=== PATIENT | male | born 1970 | race Caucasian/White ===

== ENCOUNTER 2020-10-01 14:27 | Outpatient (REF) | payer OTHER, SELFPAY ==
--- NOTE | ~2020-10-01 | MR_ITS ---
EXAMINATION: MR KNEE WITHOUT CONTRAST, LEFT CLINICAL INFORMATION: Left knee. Medial pain x2 months. Twisting injury. COMPARISON: None TECHNIQUE: MRI of the knee without contrast was performed using routine sequences on a high-field scanner. FINDINGS: MENISCI: Medial Meniscus: Complex tear of the posterior horn and body is primarily horizontal, contacting the meniscal undersurface. There is peripheral extrusion of an undersurface meniscal flap into the meniscotibial recess. Significant undersurface fraying is present at the tear. A multilocular parameniscal cyst extends from the meniscal body around the anterior horn, measuring 4.7 x 0.7 x 1.2 cm. A more posterior multilocular parameniscal cyst propagates posteriorly along the posterior joint capsule, measuring 4.7 x 0.9 x 1 cm. Lateral Meniscus: Intact LIGAMENTS: Cruciate: Intact Collateral: Components of the parameniscal cyst propagate through the MCL. MCL and LCL complex are intact. EXTENSOR MECHANISM: Intact ARTICULAR CARTILAGE/BONE: Patellofemoral Compartment: Lateral trochlear inclination angle measures 6 degrees, shallow. There is severe, full-thickness articular cartilage loss at two-thirds of the lateral patellar facet and much of the lateral trochlear facet with articular cortical remodeling, subcortical sclerosis and edema, and marginal osteophytes. There is more moderate surrounding chondral thinning at the lateral facets and mild to moderate chondral thinning at the medial facets. A transverse full-thickness chondral fissure extends into the medial patellar facet. TT TG distance measures 1.1 cm. No fractures. Medial Compartment: Subchondral edema and cystic change at the medial tibial plateau are reactive to the overlying meniscal tear. Minimal chondral thinning in this region. Small marginal osteophytes. Lateral Compartment: Small marginal osteophytes. Minimal chondral fissuring at the anterior weightbearing surface of the lateral femoral condyle. JOINT FLUID AND BURSAE: No joint effusion or Eden's cyst. MR/MR knee LT wo con IMPRESSION: 1. Complex horizontal undersurface tear at the posterior horn and body of the medial meniscus with partial extrusion of the meniscal body and prominent parameniscal cyst. 2. 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 3. Mild medial and lateral compartment osteoarthritis.
== END 2020-10-01 14:28 | disposition home or self-care (01) ==
LOC: HO.MRI 14:27
PROVIDERS: Visit Provider Orthopaedic Surgery
DX: S83.242A Other tear of medial meniscus, current injury, left knee, initial encounter (principal)
CPT/HCPCS: 73721

== ENCOUNTER 2020-12-20 13:03 | Outpatient (REF) | payer OTHER, SELFPAY ==
[2020-12-20 14:03] LABS: Basophils Percent Auto 0.7 % (0-2); Eosinophils Absolute Auto 0.1 X10*3/uL (0.0-0.4); Eosinophils Percent Auto 2.4 % (0-4); Hematocrit 41.1 % (42-52); Hemoglobin 13.6 g/dl (14.0-18.0); Imm Gran Abs Auto 0.02 X10*3/uL (0.00-0.03); Imm Gran Pct Auto 0.5 % (0.0-0.4); Lymphocytes Absolute Auto 0.7 X10*3/uL (1.2-4.9); Lymphocytes Percent Auto 16.4 % (20-40); MANUAL DIFF FLAG SCAN; Mean Corpuscular HGB Conc 33.1 g/dl (31.0-36.0); Mean Corpuscular Hemoglobin 30.4 pg (27.0-33.0); Mean Corpuscular Volume 91.7 fL (80-98); Mean Platelet Volume 9.8 fL (9.4-12.4); Monocytes Absolute Auto 0.3 X10*3/uL (0.1-1.2); Monocytes Percent Auto 7.8 % (2-11); Neutrophils Percent Auto 72.2 % (45-73); Platelet Count 210 X10*3/uL (160-400); Red Blood Count 4.48 X10*6/uL (4.60-5.80); Red Cell Distribution Width 12.3 % (11.0-16.0); SCAN SMEAR FLAG 1; White Blood Count 4.1 X10*3/uL (4.8-10.8)
[2020-12-20 14:23] LABS: SLIDE REVIEW VERIFIED
[2020-12-20 14:27] LABS: Anion Gap 13 (12-20); Blood Urea Nitrogen 18 mg/dL (9-16); Calcium 9.7 mg/dL (8.4-10.2); Carbon Dioxide 27 mmol/L (22-29); Chloride 104 mmol/L (96-108); Estimated Glomerular Filt Rate > 60; Glucose Fasting 84 mg/dL (60-99); Potassium 4.3 mmol/L (3.3-5.1); Sodium 140 mmol/L (135-145)
[2020-12-20 14:51] LABS: TSH reflex Free T4 5.91 uIU/mL (0.32-4.0)
[2020-12-20 15:24] LABS: Free T4 (Free Thyroxine) 0.79 ng/dL (0.71-1.85)
== END 2020-12-20 13:04 | disposition home or self-care (01) ==
LOC: HO.10HDL 13:03
PROVIDERS: Visit Provider Physician Assistant
DX: Z85.819 Personal history of malignant neoplasm of unspecified site of lip, oral cavity, and pharynx (principal)
CPT/HCPCS: 36415; 80048; 84439; 84443; 85025

== ENCOUNTER 2021-02-18 12:05 | Outpatient (REF) | payer OTHER, SELFPAY | END 2021-02-18 12:06 | disposition home or self-care (01) | LOC: HO.LAB 12:05 | PROVIDERS: Visit Provider Physician Assistant | DX: E30.9 Disorder of puberty, unspecified (principal) | CPT/HCPCS: 36415; 84443 ==

== ENCOUNTER 2021-03-19 14:32 | Outpatient (REF) | payer OTHER, SELFPAY ==
--- NOTE | ~2021-03-19 | XR_ITS ---
EXAMINATION: XR ANKLE, RIGHT CLINICAL INFORMATION: Right ankle pain. COMPARISON: None TECHNIQUE: AP, lateral, and mortise views of the right ankle. FINDINGS: There is no evidence of acute fracture or dislocation of the right ankle. There is evidence for previous trauma with some spurring about the medial and lateral malleoli. There is some narrowing of the medial joint space compartment with subchondral cyst formation present. There is some talar tilt present of approximately 7 degrees. XR/XR ankle RT min 3V IMPRESSION: Degenerative change medial joint space compartment of the right ankle with 7 degrees of talar tilt.
== END 2021-03-19 14:33 | disposition home or self-care (01) ==
LOC: HO.HOSX 14:32
PROVIDERS: Visit Provider Physician Assistant
DX: M25.571 Pain in right ankle and joints of right foot (principal)
CPT/HCPCS: 73610

== ENCOUNTER 2021-03-27 14:23 | Outpatient (REF) | payer OTHER, SELFPAY ==
--- NOTE | ~2021-03-27 | MR_ITS ---
EXAMINATION: MR ANKLE WITHOUT CONTRAST, RIGHT CLINICAL INFORMATION: Synovitis and tenosynovitis of the right ankle. Right ankle pain. COMPARISON: Radiographs dated 03/19/2021. TECHNIQUE: Multiplanar MR imaging was obtained through the right ankle on a 1.5 Manda magnet. FINDINGS: ACHILLES TENDON: Normal. OTHER TENDONS: A longitudinal tear of the peroneus brevis measures 7 cm in length and is associated with tendinosis and moderate tenosynovitis. Peroneus longus is normal. There is cvqd-rp-zuzikkjh posterior tibial tenosynovitis. Flexor hallucis longus and flexor digitorum longus are intact. LIGAMENTS: Anterior talofibular ligament is largely absent, consistent with a chronic high-grade tear. Calcaneofibular and posterior talofibular ligaments are intact. Distal tibiofibular ligaments are intact. There is poor definition of the deep fibers of the deltoid ligament, most consistent with a prior sprain. The spring ligament and superficial fibers of the deltoid ligament are intact. BONE AND ARTICULAR CARTILAGE: There is nonuniform articular cartilage loss at the talus with a broad area of high-grade cartilage loss posteromedially measuring 1.8 x 1 cm in area, associated with articular cortical irregularity and subchondral edema as well as a small non-marginal osteophyte. Additional focal high-grade cartilage loss is present at the lateral margin of the talar dome over an area measuring 2 x 0.6 cm with full-thickness chondral fissuring, articular cortical irregularity, subchondral edema, and a non-marginal osteophyte. There is high-grade cartilage loss along the medial articular surface of the talar dome at the articulation with the medial malleolus with significant associated articular cortical remodeling and subchondral edema as well as marginal osteophytes. Foci of full-thickness chondral fissuring are present at the tibial plafond anteriorly with underlying subchondral edema and small to moderate-sized marginal osteophytes. More mild degenerative arthritis is present in the lateral aspect of the talocrural joint. There is mild osteoarthritis in the posterior facet of the subtalar joint. The Chopart joint appears relatively well preserved. No fracture or malalignment. Mild osteoarthritis is present in the tarsometatarsal joints. JOINT FLUID AND SOFT TISSUES: No significant joint effusion. Marked subcutaneous edema is present in the posterior soft tissues of the ankle. There is additional subcutaneous emphysema anterolaterally. There is pshw-kf-getacnav synovitis at the talocrural joint. PLANTAR FASCIA: Normal. SINUS TARSI AND TARSAL TUNNEL: Normal. MR/MR ankle RT wo con IMPRESSION: 1. Moderate talocrural osteoarthritis with areas of high-grade cartilage loss, most pronounced medially. Prominent anterior marginal osteophytes may produce anterior ankle joint impingement, though are not specific for it in the absence of a corresponding symptoms. 2. Ijqd-zb-wmieabbw synovitis at the talocrural joint. The pattern of osteoarthritis in the talocrural joint suggests that this is reactive in nature. A superimposed inflammatory arthropathy cannot be excluded. 3. Longitudinal tear of the peroneus brevis with tendinosis and moderate tenosynovitis. 4. Ylte-gl-xltgvoea posterior tibial tenosynovitis.
== END 2021-03-27 14:24 | disposition home or self-care (01) ==
LOC: HO.MRI 14:23
PROVIDERS: Visit Provider Orthopaedic Surgery
DX: M65.9 Synovitis and tenosynovitis, unspecified (principal)
CPT/HCPCS: 73721

== ENCOUNTER 2021-06-19 10:17 | Outpatient (REF) | payer OTHER, SELFPAY ==
[2021-06-19 10:42] LABS: MANUAL DIFF FLAG NO
[2021-06-19 11:07] LABS: Basophils Percent Auto 0.6 % (0-2); Eosinophils Absolute Auto 0.2 X10*3/uL (0.0-0.4); Eosinophils Percent Auto 4.6 % (0-4); Hematocrit 42.9 % (42-52); Hemoglobin 14.8 g/dl (14.0-18.0); Imm Gran Abs Auto 0.02 X10*3/uL (0.00-0.03); Imm Gran Pct Auto 0.4 % (0.0-0.4); Lymphocytes Absolute Auto 0.8 X10*3/uL (1.2-4.9); Mean Corpuscular HGB Conc 34.5 g/dl (31.0-36.0); Mean Corpuscular Volume 89.7 fL (80-98); Mean Platelet Volume 9.4 fL (9.4-12.4); Monocytes Absolute Auto 0.4 X10*3/uL (0.1-1.2); Monocytes Percent Auto 8.1 % (2-11); Neutrophils Absolute Auto 3.5 X10*3/uL (2.0-8.3); Neutrophils Percent Auto 70.3 % (45-73); Platelet Count 219 X10*3/uL (160-400); Red Blood Count 4.78 X10*6/uL (4.60-5.80); Red Cell Distribution Width 11.6 % (11.0-16.0)
[2021-06-19 11:54] LABS: Alanine Aminotransferase 21 U/L (0-40); Albumin Level 4.4 g/dL (3.5-5.0); Alkaline Phosphatase 49 U/L (39-117); Anion Gap 10 (12-20); Aspartate Amino Transferase 33 U/L (5-37); Bilirubin Total 1.3 mg/dL (0.0-1.0); Blood Urea Nitrogen 16 mg/dL (9-16); Calcium 9.1 mg/dL (8.4-10.2); Carbon Dioxide 26 mmol/L (22-29); Chloride 104 mmol/L (96-108); Cholesterol 246 mg/dL; Estimated Glomerular Filt Rate > 60; Glucose Random 79 mg/dL (60-115); HDL Cholesterol 55 mg/dL; LDL Cholesterol Calculated 177 mg/dl; Potassium 4.4 mmol/L (3.3-5.1); Sodium 136 mmol/L (135-145); Triglycerides 74 mg/dL
[2021-06-19 11:58] LABS: Prostate Specific Antigen 0.39 ng/mL (<0.05-4.0); TSH reflex Free T4 2.93 uIU/mL (0.32-4.0)
== END 2021-06-19 10:18 | disposition home or self-care (01) ==
LOC: HO.LAB 10:17
PROVIDERS: Visit Provider Physician Assistant
DX: Z12.5 Encounter for screening for malignant neoplasm of prostate (principal); Z85.819 Personal history of malignant neoplasm of unspecified site of lip, oral cavity, and pharynx
CPT/HCPCS: 36415; 80053; 80061; 84153; 84443; 85025

== ENCOUNTER 2021-08-30 14:00 | Outpatient (RCR) | payer OTHER, SELFPAY ==
--- NOTE | 2021-03-29 12:03 | MHC.PT.EP ---
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 Upon exam he demonstrates impairments of decreased ROM, joint mobility of subtalar joint, restriction of lower extremity soft tissues, decreased stability of foot and ankle complex and increased pain. Functional limitations include decreased tolerance to long periods of static standing, decrease tolerance to high demand recreational tasks and fitness activities. Frequency and Duration: The patient will be seen 1-2 x week for 3 weeks Short Term Goals: educ in ankle strength and stabilization program and demonstrate evidence of learning in 2 visits Intermediate Goals: To demonstrate SLS right x 30 seconds with max preturbations in 4 weeks To demonstrate return to sport with pain no greater than 2/10 during activity in 3 weeks To tolerate standing for 4 hours or greater without increasing pain greater than 2/10 in 3 weeks Treatment Plan: Modalities to reduce pain, spasms and effusion. Manual therapy to restore motion and function. Therapeutic exercise to improve strength and flexibility. Neuromuscular re-education for posture and balance. Therapeutic activities to return to functional activities of daily living. Electronically signed by: LISA CANTU PT, DPT Please sign and return to therapist. Thank you for your referral.
--- NOTE | 2021-07-10 15:12 | MHC.PT.EP ---
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 Upon exam he demonstrates impairments of decreased ROM, joint mobility of subtalar joint, restriction of lower extremity soft tissues, decreased stability of foot and ankle complex and increased pain. Functional limitations include decreased tolerance to long periods of static standing, decrease tolerance to high demand recreational tasks and fitness activities. Frequency and Duration: The patient will be seen 1-2 x week for 3 weeks Short Term Goals: STG MET Tail Sawyer Goals: To demonstrate SLS right x 30 seconds with max preturbations in 4 weeks To demonstrate return to sport with pain no greater than 2/10 during activity in 3 weeks To tolerate standing for 4 hours or greater without increasing pain greater than 2/10 in 3 weeks Treatment Plan: Modalities to reduce pain, spasms and effusion. Manual therapy to restore motion and function. Therapeutic exercise to improve strength and flexibility. Neuromuscular re-education for posture and balance. Therapeutic activities to return to functional activities of daily living. Electronically signed by: Please sign and return to therapist. Thank you for your referral.
== END 2021-11-11 10:51 | disposition home or self-care (01) ==
LOC: HO.PT 14:00
PROVIDERS: Visit Provider Physician Assistant
DX: M19.071 Primary osteoarthritis, right ankle and foot (principal)
CPT/HCPCS: 97014; 97033; 97035; 97110; 97112; 97140; 97161; 97530

== ENCOUNTER 2021-12-04 11:19 | Outpatient (REF) | payer OTHER, SELFPAY ==
[2021-12-04 12:50] LABS: Thyroid Stimulating Hormone 5.13 uIU/mL (0.32-4.0)
== END 2021-12-04 11:20 | disposition home or self-care (01) ==
LOC: HO.LAB 11:19
PROVIDERS: Visit Provider Physician Assistant
DX: E03.9 Hypothyroidism, unspecified (principal)
CPT/HCPCS: 36415; 84443

== ENCOUNTER 2022-01-30 12:07 | Outpatient (REF) | payer OTHER, SELFPAY ==
[2022-01-30 14:12] LABS: TSH reflex Free T4 1.41 uIU/mL (0.32-4.0)
== END 2022-01-30 12:08 | disposition home or self-care (01) ==
LOC: HO.LAB 12:07
PROVIDERS: Visit Provider Physician Assistant
DX: Z85.819 Personal history of malignant neoplasm of unspecified site of lip, oral cavity, and pharynx (principal)
CPT/HCPCS: 36415; 84443

== ENCOUNTER 2022-05-12 08:32 | Outpatient (REF) | payer OTHER, SELFPAY ==
[2022-05-12 11:04] LABS: Alanine Aminotransferase 33 U/L (0-40); Albumin Level 4.4 g/dL (3.5-5.0); Alkaline Phosphatase 55 U/L (39-117); Anion Gap 14 (12-20); Aspartate Amino Transferase 41 U/L (5-37); Bilirubin Direct 0.3 mg/dL (0.0-0.5); Blood Urea Nitrogen 26 mg/dL (9-16); Calcium 9.2 mg/dL (8.4-10.2); Carbon Dioxide 25 mmol/L (22-29); Chloride 105 mmol/L (96-108); Estimated Glomerular Filt Rate > 60; Glucose Fasting 95 mg/dL (60-99); HDL Cholesterol 62 mg/dL; Potassium 4.5 mmol/L (3.3-5.1); Sodium 139 mmol/L (135-145)
[2022-05-12 11:27] LABS: Insulin 7 uU/mL (2-29); TSH reflex Free T4 2.29 uIU/mL (0.32-4.0)
[2022-05-12 13:03] LABS: Cholesterol 271 mg/dL; Triglycerides 46 mg/dL
[2022-05-13 22:32] LABS: LDL Cholesterol Direct 150 mg/dL (<100)
[2022-05-14 14:56] LABS: CRP High Sensitivity <0.3 mg/L
[2022-05-17 03:57] LABS: Dihydrotestosterone 78 ng/dL (12-65)
[2022-05-17 14:51] LABS: Testosterone, Free 58.4 pg/mL (35.0-155.0); Testosterone, Total 739 ng/dL (250-1100)
[2022-05-17 16:22] LABS: Triiodothyronine T3 Reverse 14 ng/dL (8-25)
[2022-05-17 20:42] LABS: Cortisol, Free 0.33 mcg/dL
== END 2022-05-12 08:33 | disposition home or self-care (01) ==
LOC: HO.10HDL 08:32
PROVIDERS: Visit Provider Physician Assistant
DX: E03.9 Hypothyroidism, unspecified (principal)
CPT/HCPCS: 36415; 80048; 80076; 82465; 82530; 82642; 83525; 83718; 83721; 84402; 84403; 84443; 84478; 84482; 86141

== ENCOUNTER 2022-07-30 09:35 | Outpatient (REF) | payer OTHER, SELFPAY ==
[2022-07-30 09:44] LABS: MANUAL DIFF FLAG NO
[2022-07-30 10:02] LABS: Basophils Percent Auto 1.1 % (0-2); Eosinophils Absolute Auto 0.1 X10*3/uL (0.0-0.4); Hemoglobin 14.1 g/dl (14.0-18.0); Lymphocytes Absolute Auto 0.7 X10*3/uL (1.2-4.9); Lymphocytes Percent Auto 19.5 % (20-40); Mean Corpuscular HGB Conc 33.6 g/dl (31.0-36.0); Mean Corpuscular Hemoglobin 30.3 pg (27.0-33.0); Mean Corpuscular Volume 90.1 fL (80.0-98.0); Mean Platelet Volume 10.2 fL (9.4-12.4); Monocytes Absolute Auto 0.3 X10*3/uL (0.1-1.2); Monocytes Percent Auto 8.8 % (2-11); Neutrophils Absolute Auto 2.4 x10*3/uL (2.0-8.3); Neutrophils Percent Auto 66.6 % (45-73); Platelet Count 190 X10*3/uL (160-400); Red Blood Count 4.66 X10*6/uL (4.60-5.80); Red Cell Distribution Width 12.4 % (11.0-16.0); White Blood Count 3.5 X10*3/uL (4.8-10.8)
[2022-07-30 10:38] LABS: Glucose, Whole Blood 89 mg/dL (60-115)
[2022-07-30 10:38] LABS: Estimated Average Glucose 100 mg/dL; Hemoglobin A1c % 5.1 %
[2022-07-30 10:49] LABS: TSH reflex Free T4 1.79 uIU/mL (0.32-4.0)
== END 2022-07-30 09:36 | disposition home or self-care (01) ==
LOC: HO.LAB 09:35
PROVIDERS: Visit Provider Physician Assistant
DX: E03.9 Hypothyroidism, unspecified (principal)
CPT/HCPCS: 36415; 82947; 83036; 84443; 85025

== ENCOUNTER → 2022-09-15 12:12 | Outpatient (BNVA) | payer OTHER, SELFPAY | PROVIDERS: Visit Provider Internal Medicine Cardiovascular Disease | DX: Z13.89 Encounter for screening for other disorder (principal) | CPT/HCPCS: 93005 ==

== ENCOUNTER 2022-09-19 11:43 | Outpatient (REF) | payer OTHER, SELFPAY ==
[2022-09-19 13:40] LABS: MANUAL DIFF FLAG NO
[2022-09-19 13:45] LABS: Basophils Percent Auto 1.1 % (0-2); Eosinophils Absolute Auto 0.1 X10*3/uL (0.0-0.4); Eosinophils Percent Auto 3.6 % (0-4); Hemoglobin 13.6 g/dl (14.0-18.0); Imm Gran Abs Auto 0.01 X10*3/uL (0.00-0.03); Imm Gran Pct Auto 0.4 % (0.0-0.4); Lymphocytes Absolute Auto 0.6 X10*3/uL (1.2-4.9); Lymphocytes Percent Auto 22.3 % (20-40); Mean Corpuscular HGB Conc 33.2 g/dl (31.0-36.0); Mean Corpuscular Hemoglobin 30.2 pg (27.0-33.0); Mean Corpuscular Volume 91.1 fL (80.0-98.0); Mean Platelet Volume 10.8 fL (9.4-12.4); Monocytes Absolute Auto 0.3 X10*3/uL (0.1-1.2); Monocytes Percent Auto 9.5 % (2-11); Neutrophils Absolute Auto 1.7 x10*3/uL (2.0-8.3); Neutrophils Percent Auto 63.1 % (45-73); Platelet Count 177 X10*3/uL (160-400); Red Cell Distribution Width 12.3 % (11.0-16.0); White Blood Count 2.7 X10*3/uL (4.8-10.8)
[2022-09-19 14:33] LABS: Cholesterol 204 mg/dL; HDL Cholesterol 58 mg/dL; LDL Cholesterol Calculated 135 mg/dl; Triglycerides 57 mg/dL
[2022-09-19 14:50] LABS: TSH reflex Free T4 1.84 uIU/mL (0.32-4.0)
[2022-09-23 22:54] LABS: Lipoprotein A 67 nmol/L (<75)
[2022-09-24 22:58] LABS: Apolipoprotein B 117 mg/dL (<90)
== END 2022-09-19 11:44 | disposition home or self-care (01) ==
LOC: HO.10HDL 11:43
PROVIDERS: Visit Provider Physician Assistant
DX: I25.10 Atherosclerotic heart disease of native coronary artery without angina pectoris (principal)
CPT/HCPCS: 36415; 80061; 82172; 83695; 84443; 85025

== ENCOUNTER 2022-09-22 11:28 | Outpatient (REF) | payer OTHER, SELFPAY ==
[2022-09-22 13:37] LABS: MANUAL DIFF FLAG NO
[2022-09-22 14:22] LABS: Basophils Percent Auto 1.1 % (0-2); Eosinophils Absolute Auto 0.1 X10*3/uL (0.0-0.4); Eosinophils Percent Auto 3.4 % (0-4); Hematocrit 41.6 % (42.0-52.0); Hemoglobin 13.9 g/dl (14.0-18.0); Imm Gran Abs Auto 0.01 X10*3/uL (0.00-0.03); Imm Gran Pct Auto 0.3 % (0.0-0.4); Lymphocytes Absolute Auto 0.6 X10*3/uL (1.2-4.9); Lymphocytes Percent Auto 15.8 % (20-40); Mean Corpuscular HGB Conc 33.4 g/dl (31.0-36.0); Mean Corpuscular Hemoglobin 30.7 pg (27.0-33.0); Mean Corpuscular Volume 91.8 fL (80.0-98.0); Mean Platelet Volume 10.9 fL (9.4-12.4); Monocytes Absolute Auto 0.3 X10*3/uL (0.1-1.2); Neutrophils Absolute Auto 2.5 x10*3/uL (2.0-8.3); Neutrophils Percent Auto 70.4 % (45-73); Platelet Count 206 X10*3/uL (160-400); Red Blood Count 4.53 X10*6/uL (4.60-5.80); Red Cell Distribution Width 12.2 % (11.0-16.0); White Blood Count 3.5 X10*3/uL (4.8-10.8)
== END 2022-09-22 11:29 | disposition home or self-care (01) ==
LOC: HO.10HDL 11:28
PROVIDERS: Visit Provider Physician Assistant
DX: I25.10 Atherosclerotic heart disease of native coronary artery without angina pectoris (principal)
CPT/HCPCS: 36415; 85025

== ENCOUNTER 2023-12-24 08:15 | Outpatient (REF) | payer OTHER, SELFPAY ==
[2023-12-24 10:40] LABS: MANUAL DIFF FLAG NO
[2023-12-24 10:45] LABS: Basophils Percent Auto 0.8 % (0-2); Eosinophils Absolute Auto 0.1 X10*3/uL (0.0-0.4); Hematocrit 41.7 % (42.0-52.0); Hemoglobin 14.2 g/dl (14.0-18.0); Imm Gran Abs Auto 0.01 X10*3/uL (0.00-0.03); Imm Gran Pct Auto 0.2 % (0.0-0.4); Lymphocytes Absolute Auto 0.7 X10*3/uL (1.2-4.9); Lymphocytes Percent Auto 13.9 % (20-40); Mean Corpuscular HGB Conc 34.1 g/dl (31.0-36.0); Mean Corpuscular Hemoglobin 30.5 pg (27.0-33.0); Mean Corpuscular Volume 89.7 fL (80.0-98.0); Mean Platelet Volume 9.6 fL (9.4-12.4); Monocytes Absolute Auto 0.3 X10*3/uL (0.1-1.2); Monocytes Percent Auto 6.1 % (2-11); Neutrophils Absolute Auto 3.6 x10*3/uL (2.0-8.3); Platelet Count 194 X10*3/uL (160-400); Red Blood Count 4.65 X10*6/uL (4.60-5.80); Red Cell Distribution Width 12.2 % (11.0-16.0); White Blood Count 4.7 X10*3/uL (4.8-10.8)
[2023-12-24 11:44] LABS: Alanine Aminotransferase 22 U/L (0-40); Albumin Level 4.1 g/dL (3.5-5.0); Alkaline Phosphatase 55 U/L (39-117); Anion Gap 12 (12-20); Aspartate Amino Transferase 28 U/L (5-37); Bilirubin Total 0.6 mg/dL (0.0-1.0); Blood Urea Nitrogen 24 mg/dL (9-16); Calcium 9.8 mg/dL (8.4-10.2); Carbon Dioxide 27 mmol/L (22-29); Chloride 106 mmol/L (96-108); Cholesterol 210 mg/dL (<200); Estimated Glomerular Filt Rate > 60; Glucose Fasting 100 mg/dL (60-99); HDL Cholesterol 46 mg/dL (>40); LDL Cholesterol Calculated 151 mg/dL (<100); Potassium 4.4 mmol/L (3.3-5.1); Sodium 141 mmol/L (135-145); TSH reflex Free T4 2.44 uIU/mL (0.32-4.0); Triglycerides 65 mg/dL (<150)
[2023-12-29 12:19] LABS: Testosterone, Free 66.8 pg/mL (35.0-155.0); Testosterone, Total 474 ng/dL (250-1100)
[2023-12-31 04:08] LABS: Dihydrotestosterone 42 ng/dL (12-65)
[2024-01-01 09:48] LABS: Apolipoprotein B 117 mg/dL (<90)
== END 2023-12-24 08:16 | disposition home or self-care (01) ==
LOC: HO.10HDL 08:15
PROVIDERS: Visit Provider Physician Assistant
DX: Z13.89 Encounter for screening for other disorder (principal)
CPT/HCPCS: 36415; 80053; 80061; 82172; 82642; 84402; 84403; 84443; 85025

== ENCOUNTER 2024-04-07 07:53 | Outpatient (REF) | payer OTHER, SELFPAY ==
[2024-04-07 10:46] LABS: MANUAL DIFF FLAG NO
[2024-04-07 10:51] LABS: Basophils Absolute Auto 0.1 X10*3/uL (0.0-0.2); Basophils Percent Auto 1.4 % (0-2); Eosinophils Absolute Auto 0.3 X10*3/uL (0.0-0.4); Eosinophils Percent Auto 7.8 % (0-4); Hematocrit 44.7 % (42.0-52.0); Hemoglobin 15.3 g/dl (14.0-18.0); Lymphocytes Absolute Auto 0.8 X10*3/uL (1.2-4.9); Lymphocytes Percent Auto 20.8 % (20-40); Mean Corpuscular HGB Conc 34.2 g/dl (31.0-36.0); Mean Corpuscular Hemoglobin 30.9 pg (27.0-33.0); Mean Corpuscular Volume 90.3 fL (80.0-98.0); Monocytes Absolute Auto 0.4 X10*3/uL (0.1-1.2); Neutrophils Absolute Auto 2.2 x10*3/uL (2.0-8.3); Platelet Count 177 X10*3/uL (160-400); Red Blood Count 4.95 X10*6/uL (4.60-5.80); Red Cell Distribution Width 12.2 % (11.0-16.0); White Blood Count 3.6 X10*3/uL (4.8-10.8)
[2024-04-07 12:01] LABS: Anion Gap 12 (12-20); Blood Urea Nitrogen 21 mg/dL (9-16); Calcium 9.6 mg/dL (8.4-10.2); Carbon Dioxide 28 mmol/L (22-29); Chloride 104 mmol/L (96-108); Cholesterol 203 mg/dL (<200); Estimated Glomerular Filt Rate 53; Glucose Random 95 mg/dL (60-115); HDL Cholesterol 55 mg/dL (>40); LDL Cholesterol Calculated 128 mg/dL (<100); Potassium 4.2 mmol/L (3.3-5.1); Sodium 140 mmol/L (135-145); TSH reflex Free T4 3.49 uIU/mL (0.32-4.0); Triglycerides 100 mg/dL (<150)
[2024-04-12 12:29] LABS: Apolipoprotein B 123 mg/dL (<90)
== END 2024-04-07 07:54 | disposition home or self-care (01) ==
LOC: HO.10HDL 07:53
PROVIDERS: Visit Provider Physician Assistant
DX: I25.10 Atherosclerotic heart disease of native coronary artery without angina pectoris (principal); E03.9 Hypothyroidism, unspecified
CPT/HCPCS: 36415; 80048; 80061; 82172; 84443; 85025

== ENCOUNTER 2024-07-15 08:55 | Outpatient (REF) | payer OTHER, SELFPAY ==
[2024-07-15 11:29] LABS: TSH reflex Free T4 2.76 uIU/mL (0.32-4.0)
== END 2024-07-15 08:56 | disposition home or self-care (01) ==
LOC: HO.LAB 08:55
PROVIDERS: Visit Provider Physician Assistant
DX: E03.9 Hypothyroidism, unspecified (principal)
CPT/HCPCS: 36415; 84443

== ENCOUNTER 2024-07-18 14:48 | Outpatient (REF) | payer OTHER, SELFPAY | END 2024-07-18 14:49 | disposition home or self-care (01) | LOC: HO.SH 14:48 | PROVIDERS: PCP Family Medicine; Visit Provider Physician Assistant | DX: Z01.118 Encounter for examination of ears and hearing with other abnormal findings (principal); H90.3 Sensorineural hearing loss, bilateral; H93.13 Tinnitus, bilateral | CPT/HCPCS: 92557; 92567 ==

== ENCOUNTER 2024-08-12 08:50 | Outpatient (REF) | payer SELFPAY ==
--- NOTE | 2024-08-12 13:30 | MHC.AU.HA2 ---
Hearing Instrument Fitting- Adult- Binaural Date of Visit: 08/12/24 Summary of Fitting: Fit with and oriented to binaural Oticon Intent 1 R demo hearing aids. Practiced insertion and removal. Reviewed charging. Discussed use and precautions. VC disabled. Did not pair with phone. Advised to try to wear each day, as much as possible to get the best sense of whether or not he finds them beneficial. receivers with 6mm open flores domes Signed loaner form. Recommendations: Recommendations: Follow up to return demos scheduled. Diagnosis Code(s): Primary Diagnosis: H90.3 Bilateral Sensorineural Hearing Loss Secondary Diagnosis: H93.13 Tinnitus, Bilateral Signature: Provider: Lenore Edwards, CCC-A
== END 2024-08-12 08:51 | disposition home or self-care (01) ==
LOC: HO.HAP 08:50
PROVIDERS: Visit Provider Family Medicine
DX: Z13.89 Encounter for screening for other disorder (principal)

== ENCOUNTER 2024-09-26 14:25 | Outpatient (REF) | payer SELFPAY ==
--- NOTE | 2024-09-26 15:54 | MHC.AU.HA1 ---
Hearing Aid Evaluation Date of Visit: 09/26/24 Historical Information: Description of Hearing: Within normal to 2kHz sloping to severe sensorineural hearing loss. Summary: Gen has been wearing demo Oticon Intent 1 hearing aids. He reports good satisfaction with the hearing aids noting improved communication and relief from tinnitus. He notes the tinnitus is more bothersome at night with the hearing aids out. Gen would like to proceed with acquiring his own hearing aids at this time. Reviewed options. Will proceed with same model as mason. Hearing Aid Prescription: Right ear: Make, Model, Color: Oticon Intent 1 R chroma beige Battery Size: Rechargeable Classroom Instructional Aide/Slim Tube: 2/85 Type of Earmold/Dome/CShell/SlimTip: 6mm open flores Left ear: Make, Model, Color: Oticon Intent 1 R chroma beige Battery Size: Rechargeable Classroom Instructional Aide/Slim Tube: 2/85 Type of Earmold/Dome/CShell/SlimTip: 6mm open flores Plan of Care: Patient wishes to purchase hearing aids as prescribed Action Taken/Action Needed: Hearing Instrument Fitting to be scheduled when materials arrive Primary Diagnosis: H90.3 Bilateral Sensorineural Hearing Loss Secondary Diagnosis: H93.13 Tinnitus, Bilateral Signature: Provider: Lenore Edwards, [facility]
== END 2024-09-26 14:26 | disposition home or self-care (01) ==
LOC: HO.HAP 14:25
PROVIDERS: Visit Provider Family Medicine
DX: Z13.89 Encounter for screening for other disorder (principal)

== ENCOUNTER 2024-11-02 08:27 | Outpatient (REF) | payer SELFPAY ==
--- NOTE | 2024-11-02 09:47 | MHC.AU.HA2 ---
Hearing Instrument Fitting- Adult- Binaural Date of Visit: 11/02/24 Hearing Instruments Dispensed: Right Ear: Make, Model, Color, Serial Number: Oticon Intent 1 R chroma beige [id number] Coin Machine Assembler Repair Warranty: 11/05/2027 Coin Machine Assembler Loss and Damage Warranty: 11/05/2027 [facility] [place] [facility] [place] Size: Rechargeable Reporting Lead/Slim Tube: 2/85 Earmold/Dome/CShell/SlimTip: 6mm open flores no tail Type of Wax Guard: Oticon Minifit Prowax Left Ear: Make, Model, Color, Serial Number: Oticon Intent 1 R chroma beige [id number] Coin Machine Assembler Repair Warranty: 11/05/2027 Coin Machine Assembler Loss and Damage Warranty: [facility] Service [place]: [facility] Battery Size: Rechargeable Reporting Lead/Slim Tube: 2/85 Earmold/Dome/CShell/SlimTip: 6mm open flores Type of Wax Guard: Oticon Minifit Prowax Accessories/Assistive Technology: Smart Chemistry Lab Instructor [phone] Summary of Fitting: Dispensed Oticon Intent 1 R hearing aids with settings transferred from the demos that Gen has been using since July. Returned demos today. VC activated, reviewed use. Paired with phone and installed av. Tested a phone call and music streaming. Reviewed charging, maintenance. As Gen is experienced with the hearing aids at this point, additional follow up not scheduled. Recommendations: Recommendations: Follow up as needed, with concerns. Diagnosis Code(s): Primary Diagnosis: H90.3 Bilateral Sensorineural Hearing Loss Secondary Diagnosis: H93.13 Tinnitus, Bilateral Signature: Provider: Lenore Edwards, [facility]
== END 2024-11-02 08:28 | disposition home or self-care (01) ==
LOC: HO.HAP 08:27
PROVIDERS: Visit Provider Family Medicine
DX: Z46.1 Encounter for fitting and adjustment of hearing aid (principal); H90.3 Sensorineural hearing loss, bilateral; H93.13 Tinnitus, bilateral
CPT/HCPCS: V5262; V5299

== ENCOUNTER 2025-04-13 11:42 | Outpatient (REF) | payer SELFPAY ==
--- NOTE | ~2025-04-13 | XR_ITS ---
EXAMINATION: XR WRIST, RIGHT CLINICAL INFORMATION: M25.531 - Pain in right wrist COMPARISON: None available. TECHNIQUE: PA and lateral views of the right wrist. FINDINGS: The bones and soft tissues are normal. No fracture. Alignment is anatomic with normal joint spaces. No erosions or abnormal soft tissue calcifications. XR/XR wrist RT 2V IMPRESSION: Unremarkable right wrist Electronically signed by: Driss Soriano MD 04/13/2025 01:47 PM EDT
== END 2025-04-13 11:43 | disposition home or self-care (01) ==
LOC: HO.HOSX 11:42
PROVIDERS: PCP Family Medicine
DX: M19.031 Primary osteoarthritis, right wrist (principal); M25.531 Pain in right wrist; M24.831 Other specific joint derangements of right wrist, not elsewhere classified
CPT/HCPCS: 73100

== ENCOUNTER → 2025-04-13 11:49 | Outpatient (BNV) | payer OTHER, SELFPAY | PROVIDERS: PCP Family Medicine; Visit Provider Radiology Diagnostic Radiology | DX: M25.531 Pain in right wrist (principal) | CPT/HCPCS: 73100 ==